=== PATIENT | male | born 1955 | race Caucasian/White ===

== ENCOUNTER 2016-07-21 09:08 | Emergency (ER) | payer OTHER ==
[2016-07-21 09:19] VITALS: BP 153/109
--- NOTE | 2016-07-21 10:53 | RAD ---
INDICATION: Pain left sinus area. COMPARISON: There are no prior studies available for comparison. TECHNIQUE: Contiguous axial sections of the axial images of the facial bones were obtained and reconstructed in the coronal and sagittal planes. FINDINGS: The paranasal sinuses appear clear. The ostiomeatal complexes are patent on both sides. The nasal passageways are clear. There is mild deviation of the nasal septum toward the right side along its anterior portion and toward the left along its posterior portion. The posterior nasopharyngeal region appears to be within normal limits. No areas of soft tissue swelling or fluid collections are seen. The parotid and submandibular glands appear to be within normal limits. IMPRESSION: NEGATIVE EXAM.
--- NOTE | 2016-07-21 12:44 | ED ---
Glenis White Matthew, scribed for Cristiano Diaz MD on 07/21/16 at 0952 . Throat Pain/Nasal Congestion - HPI Summary HPI Summary: A 60 y/o male presents to the ED with left sided epistaxis since 2.5 hours ago. Associated symptoms include headache and left sided sinus pressure. He states that he has headaches occasionally and that they may be due to a pinched nerve in his cervical spine. The epistaxis started with initially clear discharge. He' s also c/o of a mild cold. The patient is not on blood thinners. - History of Current Complaint Chief Complaint: EDEpistaxis Time Seen by Provider: 07/21/16 09:31 Hx Obtained From: Patient Onset/Duration: Sudden Onset, Lasting Hours, Still Present Severity: Mild Associated Signs And Symptoms: Positive: Sinus Discomfort, Nasal Discharge Cough: None - Allergies/Home Medications Allergies/Adverse Reactions: Allergies Allergy/AdvReac Type Severity Reaction Status Date / Time No Known Allergies Allergy Verified 07/21/16 09:14 PMH/Surg Hx/FS Hx/Imm Hx Cardiovascular History: Reports: Hx Hypertension - Surgical History Surgery Procedure, Year, and Place: APPENDECTOMY - Immunization History Date of Tetanus Vaccine: PT STATES UNSURE Date of Influenza Vaccine: NONE Infectious Disease History: No Infectious Disease History: Denies: Traveled Outside the [place] in Last 30 Days - Family History Known Family History: Positive: Hypertension - Social History Alcohol Use: Rare Alcohol Amount: holidays Substance Use Type: Reports: None, Marijuana Hx Tobacco Use: Yes Smoking Status (MU): Former Smoker Review of Systems Constitutional: Negative Eyes: Negative Positive: Epistaxis, Nasal Discharge, Other - Left Sided Sinus Pressure Cardiovascular: Negative Respiratory: Negative Gastrointestinal: Negative Genitourinary: Negative Musculoskeletal: Negative Skin: Negative Positive: Headache Psychological: Normal All Other Systems Reviewed And Are Negative: Yes Physical Exam Triage Information Reviewed: Yes Vital Signs On Initial Exam: Initial Vitals Temp Pulse Resp BP Pulse Ox 98.9 F 116 15 153/109 100 07/21/16 09:14 07/21/16 09:14 07/21/16 09:14 07/21/16 09:14 07/21/16 09:14 Vital Signs Reviewed: Yes Appearance: Positive: Well-Appearing, Well-Nourished Skin: Positive: Warm, Skin Color Reflects Adequate Perfusion, Dry Head/Face: Positive: Normal Head/Face Inspection Eyes: Positive: Normal ENT: Positive: Normal ENT inspection, Other - No blood noted in the left nare; mucous noted Neck: Positive: Supple, Nontender Respiratory/Lung Sounds: Positive: Clear to Auscultation, Breath Sounds Present Cardiovascular: Positive: RRR Abdomen Description: Positive: Nontender, Soft Bowel Sounds: Positive: Present Musculoskeletal: Positive: Normal Neurological: Positive: Normal Psychiatric: Positive: Normal, Affect/Mood Appropriate - [place] Coma Scale Coma Scale Total: 15 Diagnostics - Vital Signs Vital Signs Temp Pulse Resp BP Pulse Ox 07/21/16 09:14 98.9 F 116 15 153/109 100 - Laboratory Lab Statement: Any lab studies that have been ordered have been reviewed, and results considered in the medical decision making process. - CT Maxillofacial CT CT Interpretation: No Acute Changes - IMPRESSION: NEGATIVE EXAMINATION CT Interpretation Completed By: Radiologist EENT Course/Dx - Course Assessment/Plan: A 60 y/o male presents to the ED with left sided epistaxis since 2.5 hours ago. Associated symptoms include headache and left sided sinus pressure. Maxillofacial CT shows no acute changes. In the ED, the epistaxis was controlled and the patient will be discharged home. - Diagnoses Provider Diagnoses: Epistaxis Discharge - Discharge Plan Condition: Stable Disposition: HOME Patient Education Materials: Nosebleed (ED) Referrals: Mary Ryan MD [Primary Care Provider] - 2 Days Additional Instructions: Please follow-up with your primary care physician. The documentation as recorded by the Glenis sebastian Matthew accurately reflects the service I personally performed and the decisions made by , Cristiano Diaz MD.
== END 2016-07-21 11:35 | disposition home or self-care (01) ==
LOC: ED 09:08
DX: R04.0 Epistaxis (principal); I10 Essential (primary) hypertension; Z87.891 Personal history of nicotine dependence
CPT/HCPCS: 70486

== ENCOUNTER 2017-01-25 23:47 | Emergency (ER) | payer OTHER ==
[2017-01-26 00:42] LABS: Hematocrit 31 % (42-52); Hemoglobin 10.5 g/dl (14.0-18.0); Mean Corpuscular HGB Conc 34 g/dl (31-36); Mean Corpuscular Hemoglobin 34 pg (27-31); Mean Corpuscular Volume 100 fL (80-94); Mean Platelet Volume 10 um3 (7.4-10.4); Red Blood Count 3.08 10^6/ul (4.0-5.4); Red Cell Distribution Width 13 % (10.5-15); White Blood Count 9.9 10^3/ul (3.5-10.8)
[2017-01-26 00:57] LABS: Albumin 3.9 g/dL (3.2-5.2); BUN/Creatinine Ratio 16.5 (8-20); Calcium 8.5 mg/dL (8.6-10.3); EGFR African American 117.1 (>60); Globulin 3.6 g/dL (2-4); Potassium 3.4 mmol/L (3.5-5.0); Total Bilirubin 0.6 mg/dL (0.2-1.0); Total Protein 7.5 g/dL (6.4-8.9)
[2017-01-26] MEDS ORDERED: Potassium Chlor TAB* 20 MEQ TAB.ER PO ONE (01:19)
[2017-01-26] MEDS ORDERED: predniSONE TAB* 20 MG PO ONE (01:26)
[2017-01-26 01:34] VITALS: BP 127/85
--- NOTE | 2017-02-14 22:53 | ED ---
Aileen White Alfonso, scribed for Kyree Perez on 01/26/17 at 0022 . Skin Complaint - HPI Summary HPI Summary: This patient is a 61 year old M presenting to [facility] accompanied by and child with a chief complaint of diffuse rash since 12 hours ago. Pt rates the pain 0/10 in severity. Symptoms aggravated and alleviated by nothing. Pt reports chills, nausea, and weakness. Pt denies fever, and pruritus. PMHx of multiple myeloma for which he is seen by Dr. Patricia (oncologist). He reports having chemotherapy this morning. - History of Current Complaint Chief Complaint: EDRashSkinAbscess Time Seen by Provider: 01/26/17 00:03 Stated Complaint: RASH Hx Obtained From: Patient Onset/Duration: Started Hours Ago - 12, Still Present Timing: Constant Onset Severity: Mild Current Severity: Mild Pain Intensity: 0 Pain Scale Used: 0-10 Numeric Skin Location: Diffuse Aggravating Symptom(s): Nothing Alleviating Symptom(s): Nothing Associated Signs & Symptoms: Nausea, Weakness, Chills, Rash - Allergy/Home Medications Allergies/Adverse Reactions: Allergies Allergy/AdvReac Type Severity Reaction Status Date / Time No Known Allergies Allergy Verified 07/21/16 09:14 Home Medications: Home Medications Dexamethasone TAB* [Decadron TAB*] 4 mg PO DAILY 01/26/17 [History Confirmed ] Lenalidomide (NF) [Revlimid (NF)] 25 mg PO DAILY 01/26/17 [History Confirmed ] Prochlorperazine TAB* 18 mg PO DAILY PRN 01/26/17 [History Confirmed 01/26/17] Sodium Chloride TAB* 1 gm PO DAILY 01/26/17 [History Confirmed 01/26/17] Valacyclovir HCl 1 gm PO 01/26/17 [History] PMH/Surg Hx/FS Hx/Imm Hx Cardiovascular History: Reports: Hx Hypertension Musculoskeletal History: Reports: Hx Osteoporosis - Cancer History Cancer Type, Location and Year: multiple myeloma Date and Location of Last Treatment: Dr. Patricia chemotherapy 01/26/2017 - Surgical History Surgery Procedure, Year, and Place: APPENDECTOMY - Immunization History Date of Tetanus Vaccine: PT STATES UNSURE Date of Influenza Vaccine: NONE Infectious Disease History: No Infectious Disease History: Denies: Traveled Outside the [place] in Last 30 Days - Family History Known Family History: Positive: Hypertension - Social History Alcohol Use: Rare Alcohol Amount: holidays Substance Use Type: Reports: Marijuana Hx Tobacco Use: Yes Smoking Status (MU): Former Smoker Review of Systems Positive: Chills. Negative: Fever Positive: Nausea Positive: Rash - Diffuse, Other - Negative pruritus Positive: Weakness All Other Systems Reviewed And Are Negative: Yes Physical Exam Triage Information Reviewed: Yes Vital Signs On Initial Exam: Initial Vitals Temp Pulse Resp BP Pulse Ox 98.4 F 105 16 133/87 97 01/25/17 23:49 01/25/17 23:49 01/25/17 23:49 01/25/17 23:49 01/25/17 23:49 Vital Signs Reviewed: Yes Appearance: Positive: Well-Appearing, No Pain Distress Skin: Positive: Warm, Dry, Other - Diffuse macular rash Head/Face: Positive: Normal Head/Face Inspection Eyes: Positive: EOMI, LORETTA ENT: Positive: Normal ENT inspection Neck: Positive: Supple, Nontender Respiratory/Lung Sounds: Positive: Clear to Auscultation, Breath Sounds Present Cardiovascular: Positive: RRR, Pulses are Symmetrical in both Upper and Lower Extremities Abdomen Description: Positive: Nontender, Soft Bowel Sounds: Positive: Present Musculoskeletal: Positive: Normal, Strength/ROM Intact Neurological: Positive: Normal, Sensory/Motor Intact, Alert, Oriented to Person Place, Time - [place] Coma Scale Coma Scale Total: 15 Diagnostics - Vital Signs Vital Signs Temp Pulse Resp BP Pulse Ox 01/26/17 00:06 98.1 F 74 16 129/68 100 01/25/17 23:49 98.4 F 105 16 133/87 97 - Laboratory Lab Results: Lab Results 01/26/17 01/26/17 01/26/17 Range/Units 00:30 00:30 00:30 WBC 9.9 (3.5-10.8) 10^3/ul RBC 3.08 L (4.0-5.4) 10^6/ul Hgb 10.5 L (14.0-18.0) g/dl Hct 31 L (42-52) % MCV 100 H (80-94) fL MCH 34 H (27-31) pg MCHC 34 (31-36) g/dl RDW 13 (10.5-15) % Plt Count 263 (150-450) 10^3/ul MPV 10 (7.4-10.4) um3 Neut % (Auto) 86.1 H (38-83) % Lymph % (Auto) 7.0 L (25-47) % Travis % (Auto) 4.4 (1-9) % Eos % (Auto) 2.4 (0-6) % Baso % (Auto) 0.1 (0-2) % Absolute Neuts (auto) 8.5 H (1.5-7.7) 10^3/ul Absolute Lymphs (auto) 0.7 L (1.0-4.8) 10^3/ul Absolute Monos (auto) 0.4 (0-0.8) 10^3/ul Absolute Eos (auto) 0.2 (0-0.6) 10^3/ul Absolute Basos (auto) 0 (0-0.2) 10^3/ul Absolute Nucleated RBC 0.01 10^3/ul Nucleated RBC % 0.1 INR (Anticoag Therapy) 0.94 (0.89-1.11) APTT 28.8 (26.0-36.3) seconds Sodium 131 L (133-145) mmol/L Potassium 3.4 L (3.5-5.0) mmol/L Chloride 100 L (101-111) mmol/L Carbon Dioxide 22 (22-32) mmol/L Anion Gap 9 (2-11) mmol/L BUN 14 (6-24) mg/dL Creatinine 0.85 (0.67-1.17) mg/dL Est GFR ( Amer) 117.1 (>60) Est GFR (Non-Af Amer) 91.0 (>60) BUN/Creatinine Ratio 16.5 (8-20) Glucose 100 (70-100) mg/dL Calcium 8.5 L (8.6-10.3) mg/dL Total Bilirubin 0.60 (0.2-1.0) mg/dL AST 16 (13-39) U/L ALT 20 (7-52) U/L Alkaline Phosphatase 59 (34-104) U/L Total Protein 7.5 (6.4-8.9) g/dL Albumin 3.9 (3.2-5.2) g/dL Globulin 3.6 (2-4) g/dL Albumin/Globulin Ratio 1.1 (1-3) Result Diagrams: 01/26/17 00:30 01/26/17 00:30 Lab Statement: Any lab studies that have been ordered have been reviewed, and results considered in the medical decision making process. Course/Dx - Course Assessment/Plan: 61 year old M presents to the ED with a CC of diffuse rash since 12 hours ago. Pt reports chills, nausea, and weakness. Pt denies fever, and pruritus. PMHx of multiple myeloma for which he is seen by Dr. Patricia ( oncologist). He reports having chemotherapy this morning. Blood and UA results reviewed. Patient will be discharged with follow up from PCP within 3 days. Pt is agreeable with this plan. - Diagnoses Provider Diagnoses: Allergic reaction Discharge - Discharge Plan Condition: Stable Disposition: HOME Prescriptions: predniSONE TAB* [Deltasone TAB*] 40 mg PO DAILY #4 tab Patient Education Materials: General Allergic Reaction (ED) Referrals: Mary Ryan MD [Primary Care Provider] - 3 Days The documentation as recorded by the Aileen sebastian Alfonso accurately reflects the service I personally performed and the decisions made by Chris neely Emmanuel.
== END 2017-01-26 01:34 | disposition home or self-care (01) ==
LOC: ED 23:47
DX: T78.40XA Allergy, unspecified, initial encounter (principal); R68.83 Chills (without fever); R11.0 Nausea; R53.1 Weakness; X58.XXXA Exposure to other specified factors, initial encounter; C90.00 Multiple myeloma not having achieved remission; I10 Essential (primary) hypertension; M81.0 Age-related osteoporosis without current pathological fracture; F12.90 Cannabis use, unspecified, uncomplicated; Z87.891 Personal history of nicotine dependence
CPT/HCPCS: 36415; 80053; 85025; 85610; 85730; 99283; A9270-GY; J7512

== ENCOUNTER 2017-12-26 10:41 | Emergency (ER) | payer OTHER ==
[2017-12-26] MEDS ORDERED: Albuterol 2.5 MG/3 ML NEB.SOL* (0.083%) INH ONE (12:19)
[2017-12-26] MEDS ORDERED: predniSONE TAB* 20 MG PO ONE (12:19)
[2017-12-26 12:58] LABS: Hematocrit 42 % (42-52); Hemoglobin 14.9 g/dl (14.0-18.0); Mean Corpuscular HGB Conc 35 g/dl (31-36); Mean Corpuscular Hemoglobin 36 pg (27-31); Mean Corpuscular Volume 101 fL (80-94); Platelet Count 247 10^3/ul (150-450); Red Blood Count 4.18 10^6/ul (4.00-5.40); Red Cell Distribution Width 15 % (10.5-15); White Blood Count 8.3 10^3/ul (3.5-10.8)
[2017-12-26 13:11] LABS: EGFR Non-African American 100.2 (>60)
--- NOTE | 2017-12-26 13:11 | RAD ---
INDICATION: Short of breath COMPARISON: Chest x-ray December 13, 2016 TECHNIQUE: PA and lateral dual-energy views were obtained. FINDINGS: Bones/Soft Tissues: There are no acute bony findings. Cardiomediastinal: The cardiomediastinal silhouette is normal. Lungs: There are no infiltrates. There is mild hyperinflation. Pleura: There are no pleural effusions. Other: None IMPRESSION: MILD HYPERINFLATION. LUNGS CLEAR.
[2017-12-26 13:38] LABS: ABS Basophils 0 10^3/ul (0-0.2); ABS Eosinophils 0.1 10^3/ul (0-0.6); ABS Lymphocytes 0.5 10^3/ul (1.0-4.8); ABS Monocytes 0.3 10^3/ul (0-0.8); ABS Neutrophils 7.4 10^3/ul (1.5-7.7); ABS Nucleated RBC 0 10^3/ul
[2017-12-26 13:39] LABS: Eosinophil % 1.8 % (0-6); Lymphocyte % 5.6 % (25-47); Nucleated Red Blood Cells % 0.1
[2017-12-26] MEDS ORDERED: Azithromycin TAB* 250 MG PO ONE (13:56)
[2017-12-26 14:09] VITALS: BP 123/79
--- NOTE | 2017-12-26 15:29 | ED ---
Jenny White Emily, scribed for CaroltahiraKyree on 12/26/17 at 1219 . Shortness of Breath - HPI Summary HPI Summary: This patient is a 62 year old M referred to [facility] by Dr. Patricia with a chief complaint of SOB that began 12/23/2017. The patient rates the pain 0/10 in severity. Symptoms aggravated by activity. Symptoms alleviated by nothing. Patient reports bilateral lower extremity edema, skin diaphoresis, sore throat, ear pain, and cough (clear sputum). Pt has a history of multiple myeloma and is currently undergoing oral chemo (on his 20th cycle). - History of Current Complaint Chief Complaint: EDShortnessOfBreath Time Seen by Provider: 12/26/17 12:08 Hx Obtained From: Patient Onset/Duration: Sudden Onset, Lasting Days, Still Present Timing: Constant Current Severity: Mild Dyspnea At: Rest Aggrevating Factors: Other - Activity Alleviating Factors: Nothing Associated Signs & Symptoms: Cough (Productive), Edema - Allergy/Home Medications Allergies/Adverse Reactions: Allergies Allergy/AdvReac Type Severity Reaction Status Date / Time No Known Allergies Allergy Verified 12/26/17 10:48 Home Medications: Home Medications Dexamethasone TAB* [Decadron TAB*] 4 mg PO DAILY 12/26/17 [History Confirmed ] Lenalidomide(NF) [Revlimid(NF)] 25 mg PO DAILY 12/26/17 [History Confirmed 12/26] Lisinopril TAB* [Prinivil TAB*] 40 mg PO DAILY 12/26/17 [History Confirmed 12/26] ValACYclovir (*) [Valtrex 1 GM(*)] 1 gm PO DAILY 12/26/17 [History Confirmed ] amLODIPine TAB* [Norvasc 5 mg TAB*] 10 mg PO DAILY 12/26/17 [History Confirmed 12/26/17] PMH/Surg Hx/FS Hx/Imm Hx Previously Healthy: No Cardiovascular History: Reports: Hx Hypertension Denies: Hx Myocardial Infarction Musculoskeletal History: Reports: Hx Osteoporosis Opthamlomology History: Denies: Hx Legally Blind EENT History: Denies: Hx Deafness - Cancer History Cancer Type, Location and Year: Multiple Myeloma 2017 Hx Chemotherapy: Yes - Oral - Surgical History Surgery Procedure, Year, and Place: APPENDECTOMY Hx Anesthesia Reactions: No - Immunization History Date of Tetanus Vaccine: PT STATES UNSURE Date of Influenza Vaccine: NONE Infectious Disease History: No Infectious Disease History: Denies: Traveled Outside the [place] in Last 30 Days - Family History Known Family History: Positive: Hypertension - Social History Occupation: Retired Lives: With Family Alcohol Use: Rare Alcohol Amount: holidays Hx Substance Use: Yes Substance Use Type: Reports: Marijuana Hx Tobacco Use: Yes Smoking Status (MU): Former Smoker Review of Systems Positive: Skin Diaphoresis Positive: Sore Throat, Ear Ache Positive: Shortness Of Breath, Cough Positive: Edema All Other Systems Reviewed And Are Negative: Yes Physical Exam - Summary Physical Exam Summary: Appearance: Well appearing, no pain distress Skin: warm, dry, reflects adequate perfusion Head/face: normal Eyes: EOMI, LORETTA ENT: normal Neck: supple, non-tender Respiratory: rhonchi left side, breath sounds present Cardiovascular: RRR, pulses symmetrical Abdomen: non-tender, soft Bowel: present Musculoskeletal: normal, strength/ROM intact Neuro: normal, sensory motor intact, A&Ox3 Triage Information Reviewed: Yes Vital Signs On Initial Exam: Initial Vitals Temp Pulse Resp BP Pulse Ox 98.1 F 69 20 131/112 93 12/26/17 10:44 12/26/17 10:44 12/26/17 10:44 12/26/17 10:44 12/26/17 10:44 Vital Signs Reviewed: Yes Diagnostics - Vital Signs Vital Signs Temp Pulse Resp BP Pulse Ox 12/26/17 12:12 105 19 136/97 98 12/26/17 12:06 108 17 138/120 98 12/26/17 12:05 29 12/26/17 10:44 98.1 F 69 20 131/112 93 - Laboratory Lab Results: Lab Results 12/26/17 12/26/17 12/26/17 Range/Units 12:36 12:36 12:36 WBC 8.3 (3.5-10.8) 10^3/ul RBC 4.18 (4.00-5.40) 10^6/ul Hgb 14.9 (14.0-18.0) g/dl Hct 42 (42-52) % MCV 101 H (80-94) fL MCH 36 H (27-31) pg MCHC 35 (31-36) g/dl RDW 15 (10.5-15) % Plt Count 247 (150-450) 10^3/ul MPV 8.0 (7.4-10.4) um3 Neut % (Auto) 89.4 H (38-83) % Lymph % (Auto) 5.6 L (25-47) % Geary % (Auto) 3.1 (0-7) % Eos % (Auto) 1.8 (0-6) % Baso % (Auto) 0.1 (0-2) % Absolute Neuts (auto) 7.4 (1.5-7.7) 10^3/ul Absolute Lymphs (auto) 0.5 L (1.0-4.8) 10^3/ul Absolute Monos (auto) 0.3 (0-0.8) 10^3/ul Absolute Eos (auto) 0.1 (0-0.6) 10^3/ul Absolute Basos (auto) 0 (0-0.2) 10^3/ul Absolute Nucleated RBC 0 10^3/ul Nucleated RBC % 0.1 D-Dimer, Quantitative (Less Than 230) ng/mL Sodium 135 (135-145) mmol/L Potassium 4.0 (3.5-5.0) mmol/L Chloride 100 L (101-111) mmol/L Carbon Dioxide 24 (22-32) mmol/L Anion Gap 11 (2-11) mmol/L BUN 15 (6-24) mg/dL Creatinine 0.78 (0.67-1.17) mg/dL Est GFR ( Amer) 121.3 (>60) Est GFR (Non-Af Amer) 100.2 (>60) BUN/Creatinine Ratio 19.2 (8-20) Glucose 123 H (70-100) mg/dL Calcium 9.1 (8.6-10.3) mg/dL Total Bilirubin 0.60 (0.2-1.0) mg/dL AST 19 (13-39) U/L ALT 24 (7-52) U/L Alkaline Phosphatase 89 (34-104) U/L Troponin I 0.00 (<0.04) ng/mL B-Natriuretic Peptide 44 ( - 100) pg/mL Total Protein 6.5 (6.4-8.9) g/dL Albumin 4.1 (3.2-5.2) g/dL Globulin 2.4 (2-4) g/dL Albumin/Globulin Ratio 1.7 (1-3) 12/26/17 Range/Units 12:36 WBC (3.5-10.8) 10^3/ul RBC (4.00-5.40) 10^6/ul Hgb (14.0-18.0) g/dl Hct (42-52) % MCV (80-94) fL MCH (27-31) pg MCHC (31-36) g/dl RDW (10.5-15) % Plt Count (150-450) 10^3/ul MPV (7.4-10.4) um3 Neut % (Auto) (38-83) % Lymph % (Auto) (25-47) % [place] % (Auto) (0-7) % Eos % (Auto) (0-6) % Baso % (Auto) (0-2) % Absolute Neuts (auto) (1.5-7.7) 10^3/ul Absolute Lymphs (auto) (1.0-4.8) 10^3/ul Absolute Monos (auto) (0-0.8) 10^3/ul Absolute Eos (auto) (0-0.6) 10^3/ul Absolute Basos (auto) (0-0.2) 10^3/ul Absolute Nucleated RBC 10^3/ul Nucleated RBC % D-Dimer, Quantitative 227 (Less Than 230) ng/mL Sodium (135-145) mmol/L Potassium (3.5-5.0) mmol/L Chloride (101-111) mmol/L Carbon Dioxide (22-32) mmol/L Anion Gap (2-11) mmol/L BUN (6-24) mg/dL Creatinine (0.67-1.17) mg/dL Est GFR ( Amer) (>60) Est GFR (Non-Af Amer) (>60) BUN/Creatinine Ratio (8-20) Glucose (70-100) mg/dL Calcium (8.6-10.3) mg/dL Total Bilirubin (0.2-1.0) mg/dL AST (13-39) U/L ALT (7-52) U/L Alkaline Phosphatase (34-104) U/L Troponin I (<0.04) ng/mL B-Natriuretic Peptide ( - 100) pg/mL Total Protein (6.4-8.9) g/dL Albumin (3.2-5.2) g/dL Globulin (2-4) g/dL Albumin/Globulin Ratio (1-3) Result Diagrams: 12/26/17 12:36 12/26/17 12:36 Lab Statement: Any lab studies that have been ordered have been reviewed, and results considered in the medical decision making process. - Radiology CXR Radiology Interpretation Completed By: Radiologist - CXR reveals, per radiologist, mild hyperinflation. Lungs clear. ED physician has reviewed this radiology report. Re-Evaluation - Re-Evaluation First Eval Re-Evaluation Time: 13:52 Change: Improved Comment: Discussed results and plan of care with the patient Course/Dx - Course Course Of Treatment: This patient is a 62 year old M referred to [facility] by Dr. Patricia with a chief complaint of SOB that began 12/23/2017. Physical Exam Findings : Rhonchi left side. CXR reveals, per radiologist, mild hyperinflation. Lungs clear. Blood work obtained. In the ED course the patient was given prednisone and Albuterol. Patient will be discharged with prescription for albuterol, Zithromax, and deltasone and with follow up from PCP. The patient is agreeable with this plan. - Diagnoses Differential Diagnosis/HQI/PQRI: Positive: Bronchitis, Pneumonia Provider Diagnoses: Bronchospasm, Multiple myeloma, Bronchitis Discharge - Sign-Out/Discharge Documenting (check all that apply): Discharge/Admit/Transfer - Discharge home - Discharge Plan Condition: Stable Disposition: HOME Prescriptions: Albuterol HFA INHALER* [Ventolin HFA Inhaler*] 2 puff INH Q6H PRN #1 mdi MDD 3 PRN Reason: Sob/Wheezing Azithromycin TAB* [Zithromax TAB (Z-ABHIJIT) 250 mg #6 tabs] 250 mg PO DAILY #4 tab predniSONE TAB* [Deltasone 20 MG TAB*] 40 mg PO DAILY #3 tab Patient Education Materials: Acute Bronchitis (ED), Bronchospasm (ED) Referrals: Mary Ryan MD [Primary Care Provider] - 3 Days Additional Instructions: RETURN TO THE EMERGENCY DEPARTMENT FOR NEW OR WORSENING SYMPTOMS - Billing Disposition and Condition Condition: STABLE Disposition: Home The documentation as recorded by the Jenny sebastian Emily accurately reflects the service I personally performed and the decisions made by me, Kyree Perez.
== END 2017-12-26 14:08 | disposition home or self-care (01) ==
LOC: ED 10:41
DX: J98.01 Acute bronchospasm (principal); C90.00 Multiple myeloma not having achieved remission; J40 Bronchitis, not specified as acute or chronic; R05 Cough; R60.0 Localized edema; R06.02 Shortness of breath
CPT/HCPCS: 36415; 71046; 80053; 83735; 83880; 84484; 85025; 85379; 99283; A9270-GY; J7512

== ENCOUNTER 2019-08-25 09:04 | Day surgery (SDC) | payer MEDICARE, MEDICAID ==
[~2019-08-25 09:04] MED LIST: Acetaminophen TAB* 325 MG PO PRN; Buffered Lidocaine 1% SYRIN* 1 ML/SYRINGE INTRADERM ONE
[2019-08-25] MEDS ORDERED: Ketorolac 0.5% OPHTH (NF) 0.5 % 5 ML BTL ONE (09:43)
[2019-08-25] MEDS ORDERED: Tropicamide 1% OPTH.SOL* BTL ONE (09:43)
[2019-08-25] MEDS ORDERED: Phenylephrine OPHTH SOL 2.5%* 2 ML ONE (09:43)
[2019-08-25] MEDS ORDERED: Cyclopentolate 1% OPTH.SOL* 2 ML BTL ONE (09:43)
[2019-08-25] MEDS ORDERED: Neomycin/Polymy/Dex OPHTH.OIN* 3.5 GM ONE (09:43)
[2019-08-25] MEDS ORDERED: Lidocaine 1% MPF ** 5 ML VIAL ONE (09:43)
[2019-08-25] MEDS ORDERED: Tetracaine 0.5% OPTH.SOL 4 ML* 1 DROP BTL ONE (09:43)
[2019-08-25] MEDS ORDERED: Midazolam* 1 MG/ML 5 ML VIAL (5 MG) ONE (10:25)
[2019-08-25] MEDS ORDERED: fentaNYL* 50 MCG/ML 2 ML VIAL (100 MCG VIAL) ONE (10:25)
[2019-08-25 11:33] VITALS: BP 120/70
--- NOTE | 2019-08-25 16:30 | OP ---
DATE OF OPERATION: 08/25/19 [facility] DATE OF : 51 SURGEON: Dr. Oliver Grossman. PHARMACY BENEFITS COORDINATOR: None. ANESTHESIA: Topical with intravenous sedation. PRE-OP DIAGNOSIS: Cataract, right eye. POST-OP DIAGNOSIS: Cataract, right eye. OPERATIVE PROCEDURE: Phacoemulsification and cataract extraction with posterior chamber intraocular lens implant, right eye. COMPLICATIONS: None. BLOOD LOSS: None. DESCRIPTION OF PROCEDURE: The patient was brought to the operating room and received a small amount of intravenous sedation. A drop of Tetracaine was placed in his right eye. He was prepped and draped in the usual sterile fashion for ophthalmic surgery and attention was directed to the right eye where a speculum was placed. A paracentesis was created at the 11 o'clock position and 0.1 cc of 1 percent preservative-free Lidocaine was injected into the anterior chamber followed by DisCoVisc. The eye was digitally stabilized while a 2.75 mm keratome was used to create a triplanar clear corneal incision at the 9 o'clock position. A continuous curvilinear capsulorrhexis was created with a cystotome and Utrata forceps. BSS on a cannula was used to hydrodissect the lens from the capsule. Phacoemulsification was performed in a divide-and- conquer technique to create four fragments which were removed. Residual cortical material was removed with irrigation and aspiration. DisCoVisc was used to inflate the capsular bag and an AU00T0 20.0 diopter lens was folded and inserted into the capsular bag. DisCoVisc was removed using irrigation and aspiration. BSS on a cannula was used to hydrate the corneal stroma and seal the wound. At the end of the case the pupil was round and the lens was centered. The eye was of normal pressure and the wound was water tight. The speculum was removed and topical Maxitrol ointment was placed on the surface of the eye. The eye was closed, patched and shielded and the patient was sent to the recovery room in stable condition with post operative instructions and follow-up appointment given. [id number]/CPS #: [id number] ELISE
== END 2019-08-25 11:25 | disposition home or self-care (01) ==
LOC: OREAST 09:04
PROVIDERS: ATTEND Ophthalmology
DX: H25.041 Posterior subcapsular polar age-related cataract, right eye (principal); C90.00 Multiple myeloma not having achieved remission; I10 Essential (primary) hypertension; Z87.891 Personal history of nicotine dependence
CPT/HCPCS: A9270-GY; J2250; J3010; V2632

== ENCOUNTER 2019-09-01 08:42 | Day surgery (SDC) | payer MEDICARE, MEDICAID ==
[~2019-09-01 08:42] MED LIST changes: +Cyclopentolate 1% OPTH.SOL* 2 ML BTL ONE; +Ketorolac 0.5% OPHTH (NF) 0.5 % 5 ML BTL ONE; +Lidocaine 1% MPF ** 5 ML VIAL ONE; +Neomycin/Polymy/Dex OPHTH.OIN* 3.5 GM ONE; +Phenylephrine OPHTH SOL 2.5%* 2 ML ONE; +Tetracaine 0.5% OPTH.SOL 4 ML* 1 DROP BTL ONE; +Tropicamide 1% OPTH.SOL* BTL ONE
[2019-09-01] MEDS ORDERED: Midazolam* 1 MG/ML 2 ML VIAL (2 MG) ONE (10:18)
[2019-09-01] MEDS ORDERED: fentaNYL* 50 MCG/ML 2 ML VIAL (100 MCG VIAL) ONE (10:18)
[2019-09-01 11:22] VITALS: BP 130/95
[2019-09-01] MEDS ORDERED: Phenylephr/Ketorolac 1%/0.3% OPH DROP BTL ONE (12:22)
--- NOTE | 2019-09-01 22:45 | OP ---
DATE OF OPERATION: 09/01/19 [facility] DATE OF : 51 SURGEON: Dr. Oliver Grossman. LOAD BLOCKER: None. ANESTHESIA: Topical with intravenous sedation. PRE-OP DIAGNOSIS: Cataract, left eye. POST-OP DIAGNOSIS: Cataract, left eye. OPERATIVE PROCEDURE: Phacoemulsification and cataract extraction with posterior chamber intraocular lens implant, left eye. COMPLICATIONS: None. BLOOD LOSS: None. DESCRIPTION OF PROCEDURE: The patient was brought to the operating room and received a small amount of intravenous sedation. A drop of Tetracaine was placed in his left eye. He was prepped and draped in the usual sterile fashion for ophthalmic surgery and attention was directed to the left eye where a speculum was placed. A paracentesis was created at the 5 o'clock position and 0.1 cc of 1 percent preservative-free Lidocaine was injected into the anterior chamber followed by DisCoVisc The eye was digitally stabilized while a 2.75 mm keratome was used to create a triplanar clear corneal incision at the 3 o' clock position. A continuous curvilinear capsulorrhexis was created with a cystotome and Utrata forceps. BSS on a cannula was used to hydrodissect the lens from the capsule. Phacoemulsification was performed in a divide-and- conquer technique to create four fragments which were removed. Residual cortical material was removed with irrigation and aspiration. DisCoVisc was used to inflate the capsular bag and an AU00T0 20.0 Diopter lens was folded and inserted into the capsular bag. DisCoVisc was removed using irrigation and aspiration. BSS on a cannula was used to hydrate the corneal stroma and seal the wound. At the end of the case the pupil was round and the lens was centered. The eye was of normal pressure and the wound was water tight. The speculum was removed and topical Maxitrol ointment was placed on the surface of the eye. The eye was closed, patched and shielded and the patient was sent to the recovery room in stable condition with post operative instructions and follow-up appointment given. [id number]/CPS #: [id number] ELISE
== END 2019-09-01 11:20 | disposition home or self-care (01) ==
LOC: OREAST 08:42
PROVIDERS: ATTEND Ophthalmology
DX: H25.12 Age-related nuclear cataract, left eye (principal); C90.00 Multiple myeloma not having achieved remission; I10 Essential (primary) hypertension; R73.09 Other abnormal glucose; K21.9 Gastro-esophageal reflux disease without esophagitis; Z79.52 Long term (current) use of systemic steroids
CPT/HCPCS: A9270-GY; J1097; J2250; J3010; V2632

== ENCOUNTER 2023-08-02 22:22 | Observation (INO) ==
[2023-08-03 00:29] LABS: Hematocrit 13.7 % (38-53); Hemoglobin 4.9 g/dL (13.2-16.3); Mean Corpuscular Hemoglobin 38.2 pg (27-33); Mean Corpuscular Hgb Conc 35.9 g/dL (31-36); Mean Corpuscular Volume 106.3 fL (80-97); Mean Platelet Volume 5.4 fL (7.5-11.2); Platelet Count 260 10^3/uL (150-450); Red Blood Count 1.29 10^6/uL (4.06-5.63); Red Cell Distribution Width 17.7 % (12-17); White Blood Count 5.6 10^3/uL (3.6-10.2)
[2023-08-03 01:01] LABS: Albumin 2.9 g/dL (3.2-5.2); C Reactive Protein 7.51 mg/L (<8.01); Calcium 9.8 mg/dL (8.6-10.3); Creatinine, Serum 1.52 mg/dL (0.67-1.17); Potassium 4.3 mmol/L (3.5-5.0); Total Bilirubin 0.3 mg/dL (0.2-1.0)
[2023-08-03] MEDS ORDERED: Morphine 2 MG/ML SYRINGE IV PRN (01:22)
[2023-08-03] MEDS ORDERED: Ondansetron 4 mg VIAL 2 MG/ML 2 ml VIAL IV PRN (01:22)
[2023-08-03 01:32] LABS: Albumin/Globulin Ratio 0.2 (1-3); Total Protein 14.9 g/dL (6.4-8.9)
[2023-08-03] MEDS: Morphine ORAL CONCENTRATE 5 MG/0.25 ML ORAL.SYRIN SL PRN (01:58)
[2023-08-03] MEDS: LORazepam 2 mg VIAL 1 ml IV PUSH PRN ×2 (02:02→06:01)
[2023-08-03 02:13] LABS: High Sensitivity Troponin 1 Hr 14 pg/mL (<20)
[2023-08-03 03:11] LABS: ABS Lymphocytes 1.5 10^3/uL (1.0-4.8); ABS Monocytes 0.6 10^3/uL (0.0-1.1); ABS Neutrophils 3.5 10^3/uL (1.5-7.6); ABS Nucleated RBC 0.03 10^3/ul; Anisocytosis 1+; Eosinophil % 0.6 %; Lymphocyte % 26.6 %; Macrocytosis 1+; Nucleated Red Blood Cells % 0.4 %/100WBC (0.0-0.8); Polychromasia 1+; Rouleaux 3+
[2023-08-03 08:47] VITALS: BP 104/76
[2023-08-03 08:52] LABS: INR 1.1 (0.83-1.13)
== END 2023-08-03 12:00 | disposition home or self-care (01) | DRG 951 ==
LOC: ED 22:22 → INTOOBSV 08-03 01:33 → EDHOLD 08-03 01:33 → SSU 08-03 07:00
PROVIDERS: ADMIT Internal Medicine; ATTEND Internal Medicine